=== PATIENT | female | born 1980 | race Caucasian/White ===

== ENCOUNTER 2017-04-26 08:08 | Emergency (ER) | payer OTHER ==
[~2017-04-26] VITALS: Ht 167.6 cm; Wt 67.6 kg
[2017-04-26] MEDS ORDERED: NAPROSYN500 MG PO (09:13)
[2017-04-26 09:22] VITALS: BP 108/67
== END 2017-04-26 09:23 | disposition home or self-care (01) ==
LOC: M.ERS 08:08
DX: M25.561 Pain in right knee (principal); Z88.6 Allergy status to analgesic agent; Z88.1 Allergy status to other antibiotic agents